=== PATIENT | female | born 1980 | race Two or more races ===

== ENCOUNTER 2017-04-01 15:41 | Emergency (ER) | payer OTHER ==
[2017-04-01 16:19] LABS: KETONE, URINE AUTO RFX NEGATIVE (NEGATIVE); LEUKOCYTE ESTERASE UR AUTO RFX NEGATIVE (NEGATIVE); NITRITE, URINE AUTO RFX NEGATIVE (NEGATIVE); RBC, URINE AUTO RFX 1 /HPF (0-3); SPECIFIC GRAVITY UR AUTO RFX 1.001 (1.002-1.035); SQUAM EPITHELIAL CELL UR AURFX 2 /HPF (0-6); WBC, URINE AUTO RFX 1 /HPF (0-3)
[2017-04-01 16:43] LABS: CONTROL LINE UCG INT CTR LINE PRESENT; URINE PREG TEST NEGATIVE (NEGATIVE)
[2017-04-01] MEDS: NITROFURANTOIN (MACROBID) 100 MG CAP PO (16:49)
[2017-04-01] MEDS: PHENAZOPYRIDINE 100 MG TAB PO (16:49)
== END 2017-04-01 16:57 | disposition home or self-care (01) ==
LOC: M ED 15:41
DX: N39.0 Urinary tract infection, site not specified (principal)
CPT/HCPCS: 84703

== ENCOUNTER 2019-02-24 15:49 | Emergency (ER) | payer OTHER ==
[~2019-02-24] VITALS: Ht 162.6 cm; Wt 67.0 kg
[~2019-02-24 15:49] MED LIST: MACR100C43 PO; PYRI1TAB5 PO
[2019-02-24] MEDS ORDERED: IBUP-1022 PO (17:11)
[2019-02-24 17:22] VITALS: BP 105/56
--- NOTE | 2019-02-25 07:36 | REP ---
RIGHT WRIST COMPLETE: 02/24/2019. Clinical history: Wrist pain. "[place] a pop". Findings: Four views are provided. There were no prior studies. Distal radius and ulna were intact on all views. The carpal bones and their joint spaces are preserved. No widening of the scapholunate or lunatotriquetral joint. No fractures of the carpal bones or metacarpals. The CMC joints and visualized MCP joints were unremarkable. Metacarpals intact. Impression: 1. There is no visible or displaced fracture, focal bone lesion, widening of any the carpal joint spaces or other acute bony finding. Negative exam. Electronically Signed by Misael Fitch MD 02/25/2019 07:46 A
== END 2019-02-24 17:30 | disposition home or self-care (01) ==
LOC: M ED 15:49
DX: S63.501A Unspecified sprain of right wrist, initial encounter (principal); M65.4 Radial styloid tenosynovitis [de Quervain]; X58.XXXA Exposure to other specified factors, initial encounter; Y92.9 Unspecified place or not applicable; Y93.9 Activity, unspecified; Y99.9 Unspecified external cause status